=== PATIENT | female | born 1980 | race Caucasian/White ===

== ENCOUNTER 2018-03-24 16:50 | Outpatient (CLI) | payer MEDICAID ==
[2018-03-24 17:22] LABS: ADD MAN DIFF? NO
[2018-03-24 17:24] LABS: BASOPHILS % 0.2 % (0.0-2.0); EOSINOPHILS # 0.3 10^3/ul (0.0-0.5); EOSINOPHILS % 2.2 % (0.0-7.0); HEMATOCRIT 31.4 % (37.0-47.0); HEMOGLOBIN 10.2 g/dl (12.0-16.0); LYMPHOCYTES # 2.1 10^3/ul (0.8-2.9); MEAN CORPUSCULAR HEMOGLOBIN 28.2 pg (29.0-33.0); MEAN CORPUSCULAR HGB CONC 32.5 g/dl (32.0-37.0); MEAN CORPUSCULAR VOLUME 86.7 fl (82.0-101.0); MEAN PLATELET VOLUME 10.9 fl (7.4-10.4); MONOCYTE # 0.7 10^3/ul (0.3-0.9); MONOCYTES % 5.7 % (0.0-11.0); NEUTROPHIL # 8.4 10^3/ul (1.6-7.5); NEUTROPHILS % 73.4 % (39.0-77.0); PLATELET COUNT 295 10^3/UL (140-415); RED BLOOD COUNT 3.62 10^6/ul (4.20-5.40)
[2018-03-24 17:24] LABS: WHITE BLOOD COUNT 11.4 10^3/ul (4.8-10.8)
[2018-03-24 17:49] LABS: ALANINE AMINOTRANSFERASE 8 IU/L (13-69); ALBUMIN 3.4 g/dl (3.3-4.9); ALBUMIN/GLOBULIN RATIO 0.91; ALKALINE PHOSPHATASE 94 IU/L (42-121); AMYLASE 73 U/L (11-123); ANION GAP 8 (5-13); ASPARTATE AMINO TRANSFERASE 16 IU/L (15-46); BLOOD UREA NITROGEN 8 mg/dl (7-20); CALCIUM 8.7 mg/dl (8.4-10.2); CARBON DIOXIDE 20 mmol/L (21-31); CHLORIDE 107 mmol/L (97-110); CREATININE 0.34 mg/dl (0.44-1.00); Estimated GFR > 60 mL/min (>60); GLUCOSE 100 mg/dl (70-220); LIPASE 77 U/L (23-300); POTASSIUM 3.3 mmol/L (3.5-5.1); SODIUM 135 mmol/L (135-144); TOTAL PROTEIN 7.1 g/dl (6.1-8.1)
[2018-03-24 18:07] LABS: ADD UMIC YES; UR ASCORBIC ACID NEGATIVE (NEGATIVE); UR BACTERIA FEW /HPF (NONE SEEN); UR BILIRUBIN (Dip) NEGATIVE (NEGATIVE); UR BLOOD (Dip) NEGATIVE (NEGATIVE); UR CLARITY SLIGHTLY CLOUDY (CLEAR); UR COLOR YELLOW (YELLOW); UR GLUCOSE (Dip) NEGATIVE (NEGATIVE); UR KETONES (Dip) 2+ mg/dL (NEGATIVE); UR LEUKOCYTE ESTERASE (Dip) TRACE Leu/ul (NEGATIVE); UR MUCUS MODERATE /HPF (NONE SEEN); UR NITRITE (Dip) NEGATIVE (NEGATIVE); UR RBC 1 /HPF (0-5); UR SPECIFIC GRAVITY (Dip) 1.024 (1.003-1.030); UR SQUAMOUS EPITHELIAL CELL FEW /HPF (FEW); UR TOTAL PROTEIN (Dip) NEGATIVE (NEGATIVE); UR UROBILINOGEN (Dip) 1+ mg/dL (NEGATIVE); UR WBC 2 /HPF (0-5)
[2018-03-24] MEDS: LACTATED RINGER'S 1,000 ML IV ×2 (18:51→19:15)
[2018-03-24] MEDS: ONDANSETRON 4 MG INJ IV (18:52)
== END 2018-03-24 20:10 | disposition home or self-care (01) ==
LOC: OBT 16:50 → L-D 16:51 → OBT 20:10
DX: O21.0 Mild hyperemesis gravidarum (principal); Z3A.30 30 weeks gestation of pregnancy
CPT/HCPCS: 36415; 76818; 80053; 81001; 82150; 83690; 85025; 96360; 96374

== ENCOUNTER 2018-05-28 10:08 | Inpatient (IN) | payer OTHER ==
[2018-05-28] MEDS ORDERED: METHYLERGONOVINE 0.2 MG INJ IM ×2 (10:30→21:00)
[2018-05-28] MEDS ORDERED: MISOPROSTOL 200 MCG TAB PR ×2 (10:30→21:00)
[2018-05-28] MEDS ORDERED: CARBOPROST 250 MCG INJ IM ×2 (10:30→21:00)
[2018-05-28] MEDS ORDERED: OXYTOCIN 30 UNITS/LR 500 ML IV ×3 (10:30→21:00)
[2018-05-28] MEDS: LACTATED RINGER'S 1,000 ML IV ×3 (11:08→20:42)
[2018-05-28 11:23] LABS: ADD MAN DIFF? NO
[2018-05-28 11:27] LABS: BASOPHILS % 0.3 % (0.0-2.0); EOSINOPHILS # 0.2 10^3/ul (0.0-0.5); EOSINOPHILS % 2.2 % (0.0-7.0); HEMATOCRIT 35.2 % (37.0-47.0); HEMOGLOBIN 11.2 g/dl (12.0-16.0); LYMPHOCYTES # 1.6 10^3/ul (0.8-2.9); LYMPHOCYTES % 17.8 % (15.0-51.0); MEAN CORPUSCULAR HEMOGLOBIN 26.8 pg (29.0-33.0); MEAN CORPUSCULAR HGB CONC 31.8 g/dl (32.0-37.0); MEAN CORPUSCULAR VOLUME 84.2 fl (82.0-101.0); MEAN PLATELET VOLUME 11.7 fl (7.4-10.4); MONOCYTE # 0.6 10^3/ul (0.3-0.9); NEUTROPHIL # 6.7 10^3/ul (1.6-7.5); NEUTROPHILS % 72.9 % (39.0-77.0); PLATELET COUNT 246 10^3/UL (140-415); RED BLOOD COUNT 4.18 10^6/ul (4.20-5.40)
[2018-05-28 11:27] LABS: WHITE BLOOD COUNT 9.2 10^3/ul (4.8-10.8)
[2018-05-28 12:02] LABS: INR 0.88; PT RATIO 0.9
[2018-05-28 12:03] LABS: PARTIAL THROMBOPLASTIN TIME 25.2 Sec (23.0-35.0)
[2018-05-28 12:17] LABS: HEPATITIS B SURFACE ANTIGEN NEGATIVE (NEGATIVE)
[2018-05-28] MEDS ORDERED: CLINDAMYCIN 900 MG/D5W (PMX) 50 ML IVPB (14:00)
[2018-05-28] MEDS: AZITHROMYCIN 500MG/NS (PMX) 250 ML IV (14:25)
[2018-05-28] MEDS: CITRIC ACID/NA CITRATE 30 ML CUP PO (14:46)
[2018-05-28] MEDS ORDERED: KETOROLAC 30 MG INJ (14:56)
[2018-05-28] MEDS ORDERED: morphine SULFATE/PF (10 MG/10 ML) INJ (14:56)
[2018-05-28] MEDS ORDERED: ONDANSETRON 4 MG INJ (14:56)
[2018-05-28] MEDS ORDERED: METOCLOPRAMIDE 10 MG INJ (14:56)
[2018-05-28] MEDS ORDERED: EPHEDrine 25 MG/5 ML SYG (15:28)
[2018-05-28] MEDS ORDERED: NALOXONE (0.4 MG/ML) INJ IV (16:00)
[2018-05-28] MEDS ORDERED: morphine (1 MG/ML) 10ML SYRINGE IV ×3 (16:00)
[2018-05-28] MEDS ORDERED: ONDANSETRON 4 MG INJ IV (16:00)
[2018-05-28] MEDS ORDERED: KETOROLAC 30 MG INJ IV (16:00)
[2018-05-28] MEDS ORDERED: DIPHENHYDRAMINE 50 MG INJ IV ×2 (16:00)
[2018-05-28] MEDS ORDERED: morphine 2 MG INJ IV ×3 (16:00)
[2018-05-28] MEDS ORDERED: FENTAnyl 50 MCG/ML VIAL (16:01)
[2018-05-28] MEDS: OXYTOCIN 30 UNITS/LR 500 ML IV ×2 (16:51→20:55)
[2018-05-28 17:22] LABS: RAPID PLASMA REAGIN NONREACTIVE (NR)
[2018-05-28] MEDS: CEFAZOLIN 2 GM/50 ML (PMX) 50 ML IVPB (17:52)
[2018-05-28] MEDS: ONDANSETRON 4 MG INJ IV (18:54)
[2018-05-28] MEDS ORDERED: OXYCODONE/ACETAMINOPHEN (5/325) TAB PO (21:00)
[2018-05-28] MEDS: LANOLIN HPA 1 PKT TOP (21:43)
[2018-05-28] MEDS: SENNA/DOCUSATE NA (8.6MG/50MG) TAB PO (21:43)
[2018-05-29] MEDS: KETOROLAC 30 MG INJ IV ×2 (02:16→12:48)
[2018-05-29] MEDS: LACTATED RINGER'S 1,000 ML IV (06:29)
[2018-05-29 08:42] LABS: ADD MAN DIFF? NO
[2018-05-29 08:45] LABS: BASOPHILS % 0.3 % (0.0-2.0); EOSINOPHILS # 0.1 10^3/ul (0.0-0.5); HEMATOCRIT 29.7 % (37.0-47.0); HEMOGLOBIN 9.5 g/dl (12.0-16.0); LYMPHOCYTES # 1.7 10^3/ul (0.8-2.9); MEAN CORPUSCULAR HEMOGLOBIN 27.3 pg (29.0-33.0); MEAN CORPUSCULAR VOLUME 85.3 fl (82.0-101.0); MONOCYTE # 0.7 10^3/ul (0.3-0.9); MONOCYTES % 5.9 % (0.0-11.0); NEUTROPHIL # 9.2 10^3/ul (1.6-7.5); NEUTROPHILS % 78.3 % (39.0-77.0); PLATELET COUNT 222 10^3/UL (140-415); RED BLOOD COUNT 3.48 10^6/ul (4.20-5.40); RED CELL DISTRIBUTION WIDTH 16.2 % (11.5-14.5)
[2018-05-29 08:45] LABS: WHITE BLOOD COUNT 11.8 10^3/ul (4.8-10.8)
[2018-05-29] MEDS: SENNA/DOCUSATE NA (8.6MG/50MG) TAB PO ×2 (09:59→21:50)
[2018-05-29] MEDS: IBUPROFEN 800 MG TAB PO ×2 (15:59→21:50)
[2018-05-30] MEDS: IBUPROFEN 800 MG TAB PO ×3 (05:47→21:44)
[2018-05-30] MEDS: SENNA/DOCUSATE NA (8.6MG/50MG) TAB PO ×2 (09:28→21:44)
[2018-05-30] MEDS: OXYCODONE/ACETAMINOPHEN (5/325) TAB PO ×2 (09:28→16:31)
[2018-05-30] MEDS ORDERED: GUAIFENESIN/DM 5ML CUP PO (13:00)
[2018-05-31] MEDS: IBUPROFEN 800 MG TAB PO ×2 (05:38→13:57)
[2018-05-31] MEDS: SENNA/DOCUSATE NA (8.6MG/50MG) TAB PO (09:36)
[2018-05-31] MEDS: DIPHTH/TET/ACEL PERTUSS (ADULT) 0.5 ML VIAL IM* (11:24)
== END 2018-05-31 17:20 | disposition home or self-care (01) | DRG 785 ==
LOC: L-D 10:08 → PP1 20:41
PROVIDERS: Obstetrics & Gynecology
PROC: 10D00Z1 Extraction of Products of Conception, Low, Open Approach (ICD-10-PCS; principal; 2018-05-28 12:30)
PROC: 0UT70ZZ Resection of Bilateral Fallopian Tubes, Open Approach (ICD-10-PCS; 2018-05-28 12:30)
DX: O65.5 Obstructed labor due to abnormality of maternal pelvic organs (principal); O34.211 Maternal care for low transverse scar from previous cesarean delivery; N73.6 Female pelvic peritoneal adhesions (postinfective); Z3A.37 37 weeks gestation of pregnancy; Z37.0 Single live birth; Z30.2 Encounter for sterilization
CPT/HCPCS: 85025; 85610; 85730; 86592; 86850; 86900; 86901; 87340; 88302; 90715; 99464